=== PATIENT | male | born 1995 | race Hispanic/Latino ===

== ENCOUNTER 2017-03-13 19:14 | Emergency (ER) | payer SELFPAY ==
[2017-03-13] MEDS ORDERED: HYOSCYAMINE SULFATE 0.125 MG TAB.SUBL SL ONE (20:12)
[2017-03-13] MEDS ORDERED: ONDANSETRON ODT 4 MG TAB ONE (20:12)
== END 2017-03-13 21:23 | disposition home or self-care (01) ==
LOC: EDH 19:14
DX: R11.2 Nausea with vomiting, unspecified (principal); R10.9 Unspecified abdominal pain